=== PATIENT | male | born 1935 | race Two or more races ===

== ENCOUNTER 2021-05-18 10:04 | Outpatient (CLI) | payer OTHER | END 2021-05-18 10:13 | disposition home or self-care (01) | LOC: TOM 10:04 | PROVIDERS: ATTEND Surgery | DX: D37.4 Neoplasm of uncertain behavior of colon (principal); K62.5 Hemorrhage of anus and rectum; R10.84 Generalized abdominal pain; R19.4 Change in bowel habit; R63.4 Abnormal weight loss; C78.7 Secondary malignant neoplasm of liver and intrahepatic bile duct; C18.4 Malignant neoplasm of transverse colon | CPT/HCPCS: 74177; 71260; Q9965 ==

== ENCOUNTER 2021-05-20 05:45 | Day surgery (SDC) | payer OTHER | END 2021-05-20 12:20 | disposition home or self-care (01) | LOC: AMB-ENDOS 05:45 | PROVIDERS: ATTEND Surgery | DX: C18.4 Malignant neoplasm of transverse colon (principal); K62.82 Dysplasia of anus; K64.8 Other hemorrhoids ==

== ENCOUNTER 2021-06-16 07:51 | Outpatient (CLI) | payer OTHER | END 2021-06-16 07:53 | disposition home or self-care (01) | LOC: NUCLEAR 07:51 | PROVIDERS: ATTEND Surgery | DX: C18.4 Malignant neoplasm of transverse colon (principal); C78.7 Secondary malignant neoplasm of liver and intrahepatic bile duct; K62.6 Ulcer of anus and rectum; R10.9 Unspecified abdominal pain; R19.4 Change in bowel habit; R63.4 Abnormal weight loss | CPT/HCPCS: 78816; A9552 ==

== ENCOUNTER 2021-07-10 06:46 | Day surgery (SDC) | payer OTHER ==
[~2021-07-10 06:46] MED LIST: LISINO PO; [UNRECOGNIZED DRUG - CODE]; [UNRECOGNIZED DRUG - OTHER] PO
[2021-07-10] MEDS ORDERED: ULTRAM50 MG PO (10:11)
== END 2021-07-10 13:57 | disposition home or self-care (01) ==
LOC: CIR.AMB 06:46
PROVIDERS: ATTEND Surgery
DX: H65.23 Chronic serous otitis media, bilateral (principal); Z20.822 Contact with and (suspected) exposure to COVID-19